=== PATIENT | male | born 1990 | race African-American/Black ===

== ENCOUNTER 2021-10-31 12:38 | Emergency (ER) | payer SELFPAY ==
[~2021-10-31] VITALS: Ht 185.4 cm; Wt 95.0 kg
[2021-10-31 12:44] VITALS: BP 137/85
== END 2021-10-31 13:20 | disposition left against medical advice (07) ==
LOC: ER 13:08
DX: Z53.21 Procedure and treatment not carried out due to patient leaving prior to being seen by health care provider (principal)